=== PATIENT | female | born 1975 | race Caucasian/White ===

== ENCOUNTER 2020-01-30 14:20 | Emergency (ER) | payer OTHER ==
[~2020-01-30] VITALS: Ht 162.6 cm; Wt 94.3 kg
[~2020-01-30 14:20] MED LIST: ACETAMINOOPHEN-1 TAB PO; CATAFLAM50 MG PO; CIPRO500 MG PO
== END 2020-01-30 20:27 | disposition home or self-care (01) ==
LOC: ER 14:20
DX: D25.1 Intramural leiomyoma of uterus (principal); N93.8 Other specified abnormal uterine and vaginal bleeding; D50.0 Iron deficiency anemia secondary to blood loss (chronic); R53.1 Weakness

== ENCOUNTER 2020-04-16 07:15 | Inpatient (IN) | payer OTHER ==
[~2020-04-16] VITALS: Ht 162.6 cm; Wt 90.7 kg
[2020-04-24] MEDS ORDERED: SIMPONI100 MG/1 M (07:55)
[2020-04-24] MEDS ORDERED: SIMPONI50 MG/0.5 (07:58)
[2020-04-24] MEDS ORDERED: LANSOPRAZOLE30 MG PO (07:58)
[2020-04-25] MEDS ORDERED: ADULT LOW DOSE81 M1 PO (10:15)
[2020-04-25] MEDS ORDERED: PERCOCET 5-3251 EACH PO (10:15)
[2020-04-25] MEDS ORDERED: KETO10TA2 PO (10:15)
[2020-04-25] MEDS ORDERED: FUSION CAPSULE1 EACH PO (10:15)
[2020-04-25] MEDS ORDERED: COLACE100 MG PO (10:16)
== END 2020-04-25 13:46 | disposition home or self-care (01) | DRG 743 ==
LOC: OB/GYN 04-23 07:00 → SURG 04-23 09:41 → O/R 04-23 09:41 → SURG 04-23 20:26 → O/R 04-23 20:28 → SURG 04-23 20:30
PROVIDERS: ADMIT Obstetrics & Gynecology; ATTEND Obstetrics & Gynecology
PROC: 0UB70ZZ Excision of Bilateral Fallopian Tubes, Open Approach (ICD-10-PCS; 2020-04-23)
PROC: 0USG0ZZ Reposition Vagina, Open Approach (ICD-10-PCS; 2020-04-23)
PROC: 0UT90ZZ Resection of Uterus, Open Approach (ICD-10-PCS; principal; 2020-04-23 07:00)
DX: D25.2 Subserosal leiomyoma of uterus (principal); D25.1 Intramural leiomyoma of uterus; D25.0 Submucous leiomyoma of uterus; M06.89 Other specified rheumatoid arthritis, multiple sites; D64.9 Anemia, unspecified